=== PATIENT | female | born 1965 | race Caucasian/White ===

== ENCOUNTER → 2018-06-12 | Outpatient (CLI) | payer OTHER ==
--- NOTE | 2018-06-12 16:33 | RAD ---
3 views right knee HISTORY: Pain AP lateral oblique standing views of the right knee The visualized osseous structures appear normal. IMPRESSION: No acute findings. Electronically signed by: Dk Espinosa III, MD (06/12/2018 4:30 PM) [facility]
== END | disposition home or self-care (01) ==
LOC: RAD 15:45
PROVIDERS: ATTEND Family Medicine
DX: M25.561 Pain in right knee (principal)
CPT/HCPCS: 73562